=== PATIENT | female | born 1965 | race Caucasian/White ===

== ENCOUNTER → 2019-08-07 | Outpatient (CLI) | payer OTHER ==
[~2019-08-07] MED LIST: ACET500 PO; ALBIPROI INH; ALBU90OI INH; ALEN70 PO; AMOX250; CALCAVITDA PO; CETI10 PO; CETI5 PO; CICL.77TC TOP; CIPDEXSU BOTHEARS; CLOBET30L TOP; CLOT1TC; CODGUAEL PO; CYAN100 PO; Coumadin5 MG PO; DULERA 100 MCG/13 GM INH; FIBER500 MG PO; Fluocinolone Ac15 G1 TP; HYDACE25S PR; IBUP400 PO; IPRAOI INH; LEVSOD50 PO; LUBRIDERM ADVA177 ML TP; Lotrimin Ultra12 GM TP; MULVITA PO; MULVITMIND PO; NITR100CA PO; ONDA4ODT MM; PHENA100 PO; POLY500 PO; Pedi-Dri 100,0060 GM; Pepto-Bism525 MG/15 PO; Percocet 5-3251 EACH PO; Peridex480 ML SS; SPIR50 PO; Veetids 500500 MG PO; Vitamin B Comple1 EA PO; XARELTO20 MG PO; Zofran8 MG PO; [UNRECOGNIZED DRUG - OTHER]
[2019-08-08 13:57] LABS: Stool Occult Bld Immuno 1 Negative (NEGATIVE)
== END | disposition home or self-care (01) ==
LOC: LAB SHORT 08:00 → LAB 08:00 → LAB FUT 07-29 09:15
PROVIDERS: Family Medicine
DX: Z12.11 Encounter for screening for malignant neoplasm of colon (principal)
CPT/HCPCS: G0328

== ENCOUNTER 2019-10-30 20:05 | Emergency (ER) | payer OTHER ==
[~2019-10-30] VITALS: Ht 152.4 cm; Wt 68.0 kg
[2019-10-30 21:47] LABS: BASOPHILS ABSOLUTE AUTO 0.05 K/mm3 (0.00-0.23); BASOPHILS PERCENT AUTO 1 % (0-2); EOSINOPHILS ABSOLUTE AUTO 0.01 K/mm3 (0.00-0.68); EOSINOPHILS PERCENT AUTO 0 % (0-6); Hemoglobin 16.9 g/dL (11.5-16.0); IMMATURE GRAN ABSOLUTE AUTO 0.06 K/mm3 (0.00-0.10); IMMATURE GRAN PERCENT AUTO 1 % (0-1); LYMPHOCYTES ABSOLUTE AUTO 0.72 K/mm3 (0.84-5.20); LYMPHOCYTES PERCENT AUTO 7 % (21-46); MONOCYTES PERCENT AUTO 5 % (4-13); Mean Corpuscular HGB 33.9 pg (26.0-34.0); Mean Corpuscular HGB Conc 34.5 g/dL (31.5-36.5); Mean Corpuscular Volume 98 fL (80-100); Mean Platelet Volume 9.8 fL (9.1-12.4); NEUTROPHILS ABSOLUTE AUTO 9.65 K/mm3 (1.96-9.15); NEUTROPHILS PERCENT AUTO 87 % (41-73); Platelet Count 205 K/mm3 (150-400); RDW Coefficient Variation 12.6 % (11.7-14.2); RDW Standard Deviation 44.8 fL (35.1-46.3); Red Blood Cell Count 4.99 M/mm3 (3.80-5.20); White Blood Cell Count 11.09 K/mm3 (4.00-11.30)
[2019-10-30 23:06] LABS: Alanine Aminotransfer (ALT/SGP 40 U/L (12-78); Albumin, Blood 3.2 g/dL (3.4-5.0); Albumin/Globulin Ratio 0.7 (0.8-1.8); Alk Phos 77 U/L (50-136); Anion Gap 8 mmol/L (6-16); Aspartate Aminotrans (AST/SGOT 33 U/L (12-37); Bilirubin, Total 0.3 mg/dL (0.1-1.0); Blood Urea Nitrogen 17 mg/dL (8-24); Bun/Creatinine Ratio 23.7 (12.0-20.0); CO2, Blood 27 mmol/L (21-32); Calcium, Blood 9.1 mg/dL (8.5-10.1); Chloride, Blood 102 mmol/L (98-108); Creatinine, Blood 0.72 mg/dL (0.40-1.00); Globulin, Blood 4.5 g/dL (2.2-4.0); Glomerular Filtration Rate >60 (60-); Glucose, Blood 121 mg/dL (70-99); Potassium, Blood 4.1 mmol/L (3.5-5.5); Sodium, Blood 137 mmol/L (136-145); Total Protein, Blood 7.7 g/dL (6.4-8.2)
[2019-10-30] MEDS ORDERED: Anucort-Hc25 MG PR (23:50)
[2019-10-30] MEDS ORDERED: Zofran4 MG PO (23:50)
== END 2019-10-31 00:17 | disposition home or self-care (01) ==
LOC: ER 20:05
PROVIDERS: Physician Assistant
DX: K64.4 Residual hemorrhoidal skin tags (principal); R11.2 Nausea with vomiting, unspecified; M81.0 Age-related osteoporosis without current pathological fracture; E03.9 Hypothyroidism, unspecified; Z79.899 Other long term (current) drug therapy; Z86.718 Personal history of other venous thrombosis and embolism
CPT/HCPCS: 80053; 83690; 85025; 96374; 99283-25; J2405

== ENCOUNTER 2021-06-15 15:02 | Emergency (ER) | payer OTHER ==
[~2021-06-15] VITALS: Ht 149.9 cm; Wt 61.2 kg
[~2021-06-15 15:02] MED LIST changes: +Anucort-Hc25 MG PR; +Zofran4 MG PO
[2021-06-15 15:23] LABS: Source, Urine Clean Catch
[2021-06-15 15:42] LABS: Appearance, Urine Cloudy (Clear); Bilirubin, Urine Neg (Neg); Blood, Urine 1+ (Neg); Color, Urine Yellow (P-Yellow); Glucose Qualitative, Urine Neg (Neg); Ketones, Urine Neg (Neg); Leukocyte Esterase, Urine 2+ (Neg); Nitrite, Urine Neg (Neg); Protein, Urine 2+ (Neg); Urobilinogen, Urine NORM (Normal)
[2021-06-15 15:47] LABS: BASOPHILS ABSOLUTE AUTO 0.05 K/mm3 (0.00-0.23); BASOPHILS PERCENT AUTO 1 % (0-2); EOSINOPHILS ABSOLUTE AUTO 0.06 K/mm3 (0.00-0.68); EOSINOPHILS PERCENT AUTO 1 % (0-6); Hematocrit 48.7 % (33.0-51.0); Hemoglobin 16.7 g/dL (11.5-16.0); IMMATURE GRAN ABSOLUTE AUTO 0.03 K/mm3 (0.00-0.10); IMMATURE GRAN PERCENT AUTO 1 % (0-1); LYMPHOCYTES ABSOLUTE AUTO 0.93 K/mm3 (0.84-5.20); LYMPHOCYTES PERCENT AUTO 17 % (21-46); MONOCYTES ABSOLUTE AUTO 0.52 K/mm3 (0.16-1.47); MONOCYTES PERCENT AUTO 10 % (4-13); Mean Corpuscular HGB 34.2 pg (26.0-34.0); Mean Corpuscular HGB Conc 34.3 g/dL (31.5-36.5); Mean Corpuscular Volume 100 fL (80-100); Mean Platelet Volume 9.6 fL (9.1-12.4); NEUTROPHILS ABSOLUTE AUTO 3.91 K/mm3 (1.96-9.15); NEUTROPHILS PERCENT AUTO 71 % (41-73); Platelet Count 209 K/mm3 (150-400); RDW Coefficient Variation 12.3 % (11.7-14.2); RDW Standard Deviation 45.9 fL (35.1-46.3); Red Blood Cell Count 4.89 M/mm3 (3.80-5.20)
[2021-06-15 16:16] LABS: Bun/Creatinine Ratio 17.8 (12.0-20.0); Calcium, Blood 9.7 mg/dL (8.5-10.1); Creatinine, Blood 1.01 mg/dL (0.40-1.00); Potassium, Blood 3.9 mmol/L (3.5-5.5)
[2021-06-15 17:13] LABS: Bacteria Mod /hpf; Red Blood Cells, Urine 0-2 /hpf (0-2); Squamous Epithelial Cells Many /hpf (Few)
[2021-06-15 17:14] LABS: Amorphous Heavy (0-Heavy); Renal Epithelial Few /hpf (0-Rare)
[2021-06-15] MEDS ORDERED: CEPH500 PO (17:39)
== END 2021-06-15 17:51 | disposition home or self-care (01) ==
LOC: ER 15:02
PROVIDERS: Student in an Organized Health Care Education/Training Program
DX: N39.0 Urinary tract infection, site not specified (principal); E03.9 Hypothyroidism, unspecified; Z79.899 Other long term (current) drug therapy; Z86.718 Personal history of other venous thrombosis and embolism
CPT/HCPCS: 71045; 80048; 81001; 85025; 87086; 93005; 93010; 99284-25; A9270

== ENCOUNTER 2022-10-25 19:56 | Emergency (ER) | payer OTHER ==
[~2022-10-25] VITALS: Ht 152.4 cm; Wt 63.5 kg
[~2022-10-25 19:56] MED LIST changes: +CEPH500 PO
== END 2022-10-25 21:28 | disposition home or self-care (01) ==
LOC: ER 19:56
DX: S43.401A Unspecified sprain of right shoulder joint, initial encounter (principal); S40.011A Contusion of right shoulder, initial encounter; X58.XXXA Exposure to other specified factors, initial encounter; E03.9 Hypothyroidism, unspecified; Z79.899 Other long term (current) drug therapy
CPT/HCPCS: 73020; 99283-25

== ENCOUNTER 2023-02-14 08:43 | Day surgery (SDC) | payer OTHER ==
[2023-02-14] VITALS (12 sets, daily range): BP systolic 113–136; BP diastolic 63–85
[~2023-02-14] VITALS: Ht 147.3 cm; Wt 61.2 kg
[~2023-02-14 08:43] MED LIST changes: +ELIQUIS5 M3 PO; +EUTHYROX125 MCG PO; +FLUT1DIS2 INH; -LEVSOD50 PO
[2023-02-14] MEDS ORDERED: Vitamin B-12100 MCG PO (09:33)
[2023-02-14] MEDS ORDERED: ONDA4 (09:33)
[2023-02-14] MEDS ORDERED: CALTRATE 600 P1 EACH PO (09:35)
--- NOTE | 2023-02-14 12:26 | NUR ---
02/14/23 1226 Juan Blanchard I ON ENTERING THE OR, THIS RN NOTED A RASH TO THE ABDOMEN AND BOTH LEGS.
--- NOTE | 2023-02-14 14:33 | NUR ---
DISCHARGE SUMMARY PT A&OX4, VSS/RA, HERNANDO PO H20, FAMILY BEDSIDE/ASSISTED DRESSING, IV DC'D. DC INS PROVIDED. PT'S SISTER JORGE REP UNDERSTANDING THOSE INSTRUCTIONS INCLUDING OK TO SHOWER TOMORROW, REMOVE GAUZE TOMORROW, NORCO SCRIPT, TCDB. CAREGIVER CALLED AND WILL SENIOR [employer] PROGRAMMER/SIGN [employer] SUPERVISOR. LEFT FLOOR VIA WC WITH RN AND JORGE TO MEET CAREGIVER/POWER PLANT SUPERVISOR.
== END 2023-02-14 14:30 | disposition home or self-care (01) ==
LOC: ORSCMMR 08:43 → ORD 10:00 → ORSCMMR 10:00 → ORSCSDS 10:00 → ORSCMMR 14:30
PROVIDERS: Surgery
PROC: 0WQF0ZZ Repair Abdominal Wall, Open Approach (ICD-10-PCS; principal; 2023-02-14 10:00)
DX: K42.9 Umbilical hernia without obstruction or gangrene (principal); I50.9 Heart failure, unspecified; G47.33 Obstructive sleep apnea (adult) (pediatric); E03.9 Hypothyroidism, unspecified; Q90.9 Down syndrome, unspecified; Z79.899 Other long term (current) drug therapy; Z79.01 Long term (current) use of anticoagulants
CPT/HCPCS: J0690; J1100; J2370; J2405; J2704; J2795; J3010; J7120

== ENCOUNTER 2023-02-23 21:22 | Emergency (ER) | payer OTHER ==
[~2023-02-23] VITALS: Ht 152.4 cm; Wt 60.3 kg
[~2023-02-23 21:22] MED LIST changes: +CALTRATE 600 P1 EACH PO; +ONDA4; +Vitamin B-12100 MCG PO
[2023-02-23 21:47] VITALS: BP 92/66
[2023-02-23] MEDS ORDERED: FLUT1DIS2 INH (23:35)
[2023-02-23] MEDS ORDERED: ACET500 PO (23:37)
== END 2023-02-24 00:16 | disposition home or self-care (01) ==
LOC: ER 21:22
DX: Z48.01 Encounter for change or removal of surgical wound dressing (principal); Z88.8 Allergy status to other drugs, medicaments and biological substances; Z79.899 Other long term (current) drug therapy; Z79.01 Long term (current) use of anticoagulants
CPT/HCPCS: 99282

== ENCOUNTER → 2023-05-22 | Outpatient (CLI) | payer OTHER | LOC: LAB SHORT 14:25 → LAB 14:25 | DX: N64.52 Nipple discharge (principal) | CPT/HCPCS: 87070; 87075; 87205 ==

== ENCOUNTER → 2024-05-13 | Outpatient (CLI) | payer OTHER | END | disposition home or self-care (01) | LOC: LAB 15:57 → LAB SHORT 15:57 | DX: L29.3 Anogenital pruritus, unspecified (principal) | CPT/HCPCS: 87070; 87205 ==

== ENCOUNTER 2024-09-09 13:08 | Emergency (ER) | payer OTHER ==
[~2024-09-09] VITALS: Ht 152.4 cm; Wt 67.6 kg
[2024-09-09] MEDS ORDERED: LORazepam 1 MG Tab PO ONE (13:30)
[2024-09-09] MEDS ORDERED: Diazepam 5 MG Tab PO ONE ×2 (14:05→15:10)
== END 2024-09-09 16:49 | disposition home or self-care (01) ==
LOC: ER 13:08
DX: S00.83XA Contusion of other part of head, initial encounter (principal); E03.9 Hypothyroidism, unspecified; W01.0XXA Fall on same level from slipping, tripping and stumbling without subsequent striking against object, initial encounter; Z79.51 Long term (current) use of inhaled steroids; Z79.899 Other long term (current) drug therapy; Z88.1 Allergy status to other antibiotic agents
CPT/HCPCS: 99283; A9270

== ENCOUNTER 2024-11-30 09:45 | Emergency (ER) | payer OTHER ==
[~2024-11-30] VITALS: Ht 160 cm; Wt 74.8 kg
[2024-11-30] MEDS ORDERED: Midazolam HCL 1 MG/ML 5MLVIAL IV SCH (10:35)
[2024-11-30 10:43] LABS: BASOPHILS ABSOLUTE AUTO 0.07 K/mm3 (0.00-0.23); BASOPHILS PERCENT AUTO 1 % (0-2); EOSINOPHILS ABSOLUTE AUTO 0.06 K/mm3 (0.00-0.68); EOSINOPHILS PERCENT AUTO 1 % (0-6); Hematocrit 48.6 % (33.0-51.0); Hemoglobin 16.6 g/dL (11.5-16.0); IMMATURE GRAN ABSOLUTE AUTO 0.17 K/mm3 (0.00-0.10); IMMATURE GRAN PERCENT AUTO 2 % (0-1); LYMPHOCYTES ABSOLUTE AUTO 0.75 K/mm3 (0.84-5.20); LYMPHOCYTES PERCENT AUTO 8 % (21-46); MONOCYTES ABSOLUTE AUTO 1.24 K/mm3 (0.16-1.47); MONOCYTES PERCENT AUTO 12 % (4-13); Mean Corpuscular HGB 35.2 pg (26.0-34.0); Mean Corpuscular HGB Conc 34.2 g/dL (31.5-36.5); Mean Corpuscular Volume 103 fL (80-100); Mean Platelet Volume 9.4 fL (9.1-12.4); NEUTROPHILS ABSOLUTE AUTO 7.68 K/mm3 (1.96-9.15); NEUTROPHILS PERCENT AUTO 77 % (41-73); Platelet Count 217 K/mm3 (150-400); RDW Coefficient Variation 12.7 % (11.7-14.2); RDW Standard Deviation 48.3 fL (35.1-46.3); Red Blood Cell Count 4.71 M/mm3 (3.80-5.20); White Blood Cell Count 9.97 K/mm3 (4.00-11.30)
[2024-11-30 10:56] LABS: Albumin, Blood 3.4 g/dL (3.4-5.0); Albumin/Globulin Ratio 0.6 (0.8-1.8); Bilirubin, Total 0.8 mg/dL (0.1-1.0); Bun/Creatinine Ratio 18.9 (12.0-20.0); Calcium, Blood 9.7 mg/dL (8.5-10.1); Creatinine, Blood 0.79 mg/dL (0.40-1.00); Globulin, Blood 5.4 g/dL (2.2-4.0); Magnesium, Blood 2.2 mg/dL (1.6-2.4); Potassium, Blood 4.2 mmol/L (3.5-5.5); Total Protein, Blood 8.8 g/dL (6.4-8.2)
[2024-11-30 12:53] LABS: Source, Urine Clean Catch
[2024-11-30 12:56] LABS: Appearance, Urine Cloudy (Clear); Bilirubin, Urine Neg (Neg); Blood, Urine Neg (Neg); Color, Urine Yellow (P-Yellow); Glucose Qualitative, Urine Neg (Neg); Ketones, Urine Neg (Neg); Leukocyte Esterase, Urine 2+ (Neg); Nitrite, Urine Neg (Neg); Protein, Urine 1+ (Neg); Urobilinogen, Urine NORM (Normal)
[2024-11-30] MEDS ORDERED: Midazolam HCl 1MG / ML 2ML Vial IV ONE (13:10)
[2024-11-30 13:13] LABS: Bacteria Mod /hpf; Red Blood Cells, Urine 0-2 /hpf (0-2); Squamous Epithelial Cells Many /hpf (Few)
[2024-11-30 13:14] LABS: Other Crystals Rare /hpf
[2024-11-30 13:39] VITALS: BP 120/84
[2024-11-30] MEDS ORDERED: CEPH500 PO (14:42)
[2024-11-30] MEDS ORDERED: Cephalexin Monohydrate 500 MG Cap PO ONE (15:10)
== END 2024-11-30 15:12 | disposition home or self-care (01) ==
LOC: ER 09:45
PROVIDERS: Student in an Organized Health Care Education/Training Program
DX: N39.0 Urinary tract infection, site not specified (principal); M79.604 Pain in right leg; Q90.9 Down syndrome, unspecified; E03.9 Hypothyroidism, unspecified; M81.0 Age-related osteoporosis without current pathological fracture; Z88.2 Allergy status to sulfonamides; Z79.899 Other long term (current) drug therapy; Z79.01 Long term (current) use of anticoagulants; Z79.83 Long term (current) use of bisphosphonates; Z86.718 Personal history of other venous thrombosis and embolism
CPT/HCPCS: 72170; 73562-RT; 80053; 81001; 83735; 85025; 96374; 96376; 99284-25; A9270; J2250

== ENCOUNTER → 2024-12-02 | Outpatient (CLI) | payer OTHER | END | disposition home or self-care (01) | LOC: LAB 18:33 → LAB SHORT 18:33 | DX: N39.0 Urinary tract infection, site not specified (principal) | CPT/HCPCS: 87086 ==

== ENCOUNTER 2024-12-11 10:27 | Emergency (ER) | payer OTHER ==
[~2024-12-11] VITALS: Wt 70.8 kg
[2024-12-11] MEDS ORDERED: Diflucan100 MG PO (11:01)
== END 2024-12-11 11:03 | disposition home or self-care (01) ==
LOC: ER 10:27
DX: B37.31 Acute candidiasis of vulva and vagina (principal); E03.9 Hypothyroidism, unspecified; Z79.51 Long term (current) use of inhaled steroids; Z79.899 Other long term (current) drug therapy; Z88.8 Allergy status to other drugs, medicaments and biological substances
CPT/HCPCS: 99282

== ENCOUNTER → 2024-12-16 | Outpatient (CLI) | payer OTHER ==
[~2024-12-16] MED LIST changes: +Diflucan100 MG PO
== END | disposition home or self-care (01) ==
LOC: LAB 10:00 → LAB SHORT 10:00
DX: N76.0 Acute vaginitis (principal)
CPT/HCPCS: 87070; 87077; 87186; 87205

== ENCOUNTER 2025-08-01 10:00 | Emergency (ER) | payer OTHER ==
[~2025-08-01] VITALS: Ht 152.4 cm; Wt 64.9 kg
[2025-08-01] MEDS ORDERED: Midazolam HCl 1MG / ML 2ML Vial IV PRN (10:40)
[2025-08-01 10:44] LABS: BASOPHILS ABSOLUTE AUTO 0.05 K/mm3 (0.00-0.23); BASOPHILS PERCENT AUTO 1 % (0-2); EOSINOPHILS ABSOLUTE AUTO 0.11 K/mm3 (0.00-0.68); EOSINOPHILS PERCENT AUTO 3 % (0-6); Hematocrit 49.3 % (33.0-51.0); Hemoglobin 16.8 g/dL (11.5-16.0); IMMATURE GRAN ABSOLUTE AUTO 0.02 K/mm3 (0.00-0.10); IMMATURE GRAN PERCENT AUTO 1 % (0-1); LYMPHOCYTES ABSOLUTE AUTO 0.66 K/mm3 (0.84-5.20); LYMPHOCYTES PERCENT AUTO 16 % (21-46); MONOCYTES ABSOLUTE AUTO 0.56 K/mm3 (0.16-1.47); MONOCYTES PERCENT AUTO 13 % (4-13); Mean Corpuscular HGB Conc 34.1 g/dL (31.5-36.5); Mean Corpuscular Volume 100 fL (80-100); NEUTROPHILS ABSOLUTE AUTO 2.81 K/mm3 (1.96-9.15); NEUTROPHILS PERCENT AUTO 67 % (41-73); NRBC ABSOLUTE 0.00 K/mm3 (0.00-0.02); NRBC Auto 0.0 /100 WBC (0.0-0.2); Platelet Count 181 K/mm3 (150-400); RDW Coefficient Variation 12.9 % (11.7-14.2); RDW Standard Deviation 47.7 fL (35.1-46.3)
[2025-08-01 11:10] LABS: Alanine Aminotransfer (ALT/SGP 48.0 U/L (12-78); Albumin, Blood 3.3 g/dL (3.4-5.0); Albumin/Globulin Ratio 0.7 (0.8-1.8); Anion Gap 3.0 mmol/L (3-11); Aspartate Aminotrans (AST/SGOT 39.0 U/L (12-37); Bilirubin, Total 0.5 mg/dL (0.1-1.0); Blood Urea Nitrogen 12.0 mg/dL (8-24); CO2, Blood 33.0 mmol/L (21-32); Calcium, Blood 8.9 mg/dL (8.5-10.1); Chloride, Blood 104.0 mmol/L (98-108); Creatinine, Blood 0.83 mg/dL (0.40-1.00); Globulin, Blood 4.6 g/dL (2.2-4.0); Glucose, Blood 110.0 mg/dL (70-99); Potassium, Blood 4.1 mmol/L (3.5-5.5); Sodium, Blood 136.0 mmol/L (136-145); Total Protein, Blood 7.9 g/dL (6.4-8.2)
[2025-08-01 12:08] LABS: Source, Urine Clean Catch
[2025-08-01 12:10] LABS: Bilirubin, Urine Neg (Neg); Color, Urine Yellow (P-Yellow); Glucose Qualitative, Urine Neg (Neg); Ketones, Urine Neg (Neg); Leukocyte Esterase, Urine Neg (Neg); Protein, Urine 1+ (Neg); Specific Gravity, Urine 1.015 (1.003-1.022); Urobilinogen, Urine NORM (Normal)
[2025-08-01 13:34] VITALS: BP 102/74
== END 2025-08-01 13:34 | disposition home or self-care (01) ==
LOC: ER 10:00
PROVIDERS: Student in an Organized Health Care Education/Training Program
DX: R41.0 Disorientation, unspecified (principal); R55 Syncope and collapse; E03.9 Hypothyroidism, unspecified; Z79.51 Long term (current) use of inhaled steroids; Z79.899 Other long term (current) drug therapy; Z88.1 Allergy status to other antibiotic agents
CPT/HCPCS: 70450; 80053; 84484; 85025; 93005; 93010; 99285-25; P9612